=== PATIENT | female | born 1995 | race Caucasian/White ===

== ENCOUNTER 2019-06-29 05:20 | Emergency (ER) | payer OTHER ==
--- NOTE | 2019-06-29 05:45 | PDOC ---
History of Present Illness - General Chief Complaint: Pain Stated Complaint: FEVER AND ABD PAIN Time Seen by Provider: 06/29/19 05:41 - History of Present Illness Initial Comments: 06/29/19 05:45 HPI: 23 y/o F with with recent delivery of twins 3 months ago and subsequent IUD placement presenting with fever and body aches that started 12 hrs ago. Temp was 102.5 at home. She also reports congestion, rhinorrhea, retro-orbital MORALES, and cough. Cough is productive of green sputum. She also reports pleuritic left sided chest pain worse with cough and deep inspiration. Deneis syncope, emesis, dysuria, sore throat, hematuria, SOB. PMHx: as noted above ROS: as noted SHx: Denies tobacco use; no alcohol use; no rec drugs Allergies: NKDA ROS: GENERAL/CONSTITUTIONAL: +fever. No weakness. HEAD, EYES, EARS, NOSE AND THROAT: No change in vision. No ear pain or discharge. No sore throat. CARDIOVASCULAR: +chest pain; no shortness of breath RESPIRATORY: +cough; no wheezing, or hemoptysis. GASTROINTESTINAL: +nausea; no vomiting, diarrhea or constipation. GENITOURINARY: No dysuria, frequency, or change in urination. MUSCULOSKELETAL: +myalgias. SKIN: No rash NEUROLOGIC: No headache, vertigo, loss of consciousness, or change in strength/ sensation. ENDOCRINE: No increased thirst. No abnormal weight change HEMATOLOGIC/LYMPHATIC: No anemia, easy bleeding, or history of blood clots. ALLERGIC/IMMUNOLOGIC: No hives or skin allergy. PE: GENERAL: Awake, alert, and fully oriented, no acute distress HEAD: No signs of trauma, normocephalic, atraumatic EYES: EOMI, sclera anicteric, conjunctiva clear ENT: Auricles normal inspection, hearing grossly normal, nares patent, oropharynx mild erythema without exudates. Moist mucosa NECK: Normal ROM, no lymphadenopathy LUNGS: No increased work of breathing, symmetrical chest rise, clear to auscultation bilaterally, no wheezes, crackles or rhonchi HEART: Regular rate, regular rhythm, normal S1 and S2, no murmur, peripheral pulses 2+ and equal bilaterally. ABDOMEN: Soft, nondistended, generalized abd discomfort on palpation. No masses. No CVAT MUSCULOSKELETAL: Normal inspection, FROM NEUROLOGICAL: Cranial nerves II through XII grossly intact. Normal speech, normal gait, no focal sensorimotor deficits SKIN: Warm, Dry, normal turgor, no rashes or lesions noted Past History - Past Medical History Allergies/Adverse Reactions: Allergies Allergy/AdvReac Type Severity Reaction Status Date / Time No Known Allergies Allergy Verified 06/29/19 05:48 Home Medications: Ambulatory Orders Oseltamivir Phosphate [Tamiflu] 75 mg PO BID #9 capsule 06/29/19 Medical Decision Making - Medical Decision Making 06/29/19 06:43 23 y/o F with with recent delivery of twins 3 months ago and subsequent IUD placement presenting with flu like symptoms that started 12 hrs ago. T 100.2 HR 105. PE with generalized abd discomfort with palpation. DDx include preg, flu, uti -ua, flu -zofran, tylenol 06/29/19 07:09 flu + will DC with tamiflu and contact pcxns Discharge - Discharge Information Problems reviewed: Yes Clinical Impression/Diagnosis: Influenza Condition: Stable Disposition: HOME - Additional Discharge Information Prescriptions: Oseltamivir Phosphate [Tamiflu] 75 mg PO BID #9 capsule - Follow up/Referral - Patient Discharge Instructions Patient Printed Discharge Instructions: DI for Viral Syndrome Additional Instructions: Additional Instructions: Please return to the emergency department with any new or worsening symptoms or concerns. Please follow up with your primary care physician within 72 hours for re- evaluation. Please followup with you obstretician You may take tylenol 650mg every 6-8 hours for pain control Please Take tamiflu 75mg twice a day for 5 days. You received the first dose in the ER; take today's 2nd dose this evening. - Post Discharge Activity
[2019-06-29 05:48] VITALS: BMI 24.7
--- NOTE | 2019-06-29 05:51 | PDOC ---
Attending Attestation - Resident Resident Name: Lucía Nunes - ED Attending Attestation I have performed the following: I have examined & evaluated the patient, The case was reviewed & discussed with the resident, I agree w/resident's findings & plan - HPI HPI: 06/29/19 05:57 Pt comes with fever and body aches. She has tachycardia and she has a hx of asthma. SHe likely has flu. - Physicial Exam PE: 06/29/19 07:02 Agree with resident exam Pt is able to eat here SHe has a low grade temp and she is tachycardic. - Medical Decision Making 06/29/19 07:02 Home with tamiflu; precautions around her young children.
[2019-06-29] MEDS ORDERED: ACETAMINOPHEN 500 MG TABLET (FP) PO ONE ×2 (05:57→06:04)
[2019-06-29] MEDS ORDERED: ACETAMINOPHEN 325 MG TABLET (FP) ONE (06:04)
[2019-06-29 06:43] LABS: EPI CELLS 21.7 /HPF (0-5/HPF); HYALINE CASTS 32 /lpf (0-8); URINE APPEARANCE CLOUDY; URINE BACTERIA 40.4 /hpf (NEGATIVE); URINE BILIRUBIN NEGATIVE (NEGATIVE); URINE COLOR YELLOW; URINE GLUCOSE (UA) NEGATIVE (NEGATIVE); URINE KETONE TRACE (NEGATIVE); URINE LEUK ESTERASE 1+ (NEGATIVE); URINE NITRITE NEGATIVE (NEGATIVE); URINE PROTEIN TRACE (NEGATIVE); URINE UROBILINOGEN 0.2 mg/dL (0.2-1.0); URINE WBC 13 /hpf (0-5)
[2019-06-29] MEDS ORDERED: OSELTAMIVIR PHOSPHATE 75 MG CAPSULE PO ONE (07:01)
[2019-06-29 07:17] LABS: URINE RBC 4.3 /hpf (0-4)
[2019-06-29 07:41] VITALS: BP 107/60; PULSE 96; TEMP 99.6
[2019-06-29] MEDS ORDERED: OSELTAMIVIR PHOSPHATE 75 MG CAPSULE ONE (07:42)
--- NOTE | 2019-07-01 10:06 | EKG ---
Test Reason : Blood Pressure : / mmHG Vent. Rate : 091 BPM Atrial Rate : 091 BPM P-R Int : 122 ms QRS Dur : 074 ms QT Int : 346 ms P-R-T Axes : 056 058 010 degrees QTc Int : 425 ms NORMAL SINUS RHYTHM NORMAL ECG NO PREVIOUS ECGS AVAILABLE Confirmed by TYSHAWN NORWOOD MD ([id number]) on 07/01/2019 10:05:47 AM Referred By: Confirmed By:TYSHAWN NORWOOD MD
== END 2019-06-29 07:54 | disposition home or self-care (01) ==
LOC: JER 05:20
DX: J10.1 Influenza due to other identified influenza virus with other respiratory manifestations (principal); Z97.5 Presence of (intrauterine) contraceptive device
CPT/HCPCS: 81003; 84703; 87804; 93005; 93010; 99283-25

== ENCOUNTER 2019-12-04 11:44 | Emergency (ER) | payer OTHER ==
[2019-12-04 11:53] VITALS: BP 138/83; PULSE 89; TEMP 98.3; BMI 25.0
[2019-12-04] MEDS ORDERED: ACETAMINOPHEN 500 MG TABLET (FP) PO ONE (11:53)
--- NOTE | 2019-12-04 11:53 | PDOC ---
Rapid Medical Evaluation Time Seen by Provider: 12/04/19 11:47 Medical Evaluation: Allergies Allergy/AdvReac Type Severity Reaction Status Date / Time No Known Allergies Allergy Verified 12/04/19 11:47 12/04/19 11:47 CC: slipped and fell in bathtub, hitting back of head, no loc, no nausea, now with generalized throbbing, no visual changes Exam: noted hematoma with lac to occiput, vss, aox 3 Plan: tylenol and head ct. (utd on [id number]) Discharge Disposition - Diagnosis Laceration of head - Referrals - Patient Instructions - Post Discharge Activity
[2019-12-04] MEDS ORDERED: ACETAMINOPHEN 500 MG TABLET (FP) ONE (12:21)
--- NOTE | 2019-12-04 12:39 | PDOC ---
History of Present Illness - General Chief Complaint: Injury Stated Complaint: FALL/HEAD LAC Time Seen by Provider: 12/04/19 11:47 History Source: Patient Exam Limitations: No Limitations Past History - Travel History Traveled outside of the country in the last 30 days: No Close contact w/someone who was outside of country & ill: No - Medical History Allergies/Adverse Reactions: Allergies Allergy/AdvReac Type Severity Reaction Status Date / Time No Known Allergies Allergy Verified 12/04/19 11:47 Home Medications: Ambulatory Orders Oseltamivir Phosphate [Tamiflu] 75 mg PO BID #9 capsule 06/29/19 Cyclobenzaprine HCl [Flexeril -] 10 mg PO HS #10 tablet 12/04/19 Asthma: Yes COPD: No - Immunization History Immunization Up to Date: No - Psycho-Social/Smoking History Smoking History: Never smoked Have you smoked in the past 12 months: No - Substance Abuse Hx (Audit-C & DAST Scrn) How often the patient has a drink containing alcohol: Never Score: In Men: 4 or > Positive; In Women: 3 or > Positive: 0 Screen Result (Pos requires Nsg. Audit-10AR): Negative In the last yr the pt used illegal drug/Rx for NonMed reason: No Score: Yes response is considered Positive: 0 Screen Result (Positive result requires Nsg. DAST-10): Negative Review of Systems - Review of Systems Able to Perform ROS?: Yes Comments:: 12/04/19 15:21 CONSTITUTIONAL: Absent: fever, chills, diaphoresis, generalized weakness, malaise, loss of appetite HEENT: Absent: rhinorrhea, nasal congestion, throat pain, throat swelling, difficulty swallowing, mouth swelling, ear pain, eye pain, visual Changes CARDIOVASCULAR: Absent: chest pain, loss of consciousness, palpitations, irregular heart rate, peripheral edema RESPIRATORY: Absent: cough, shortness of breath, dyspnea with exertion, orthopnea, wheezing, stridor, hemoptysis GASTROINTESTINAL: Absent: abdominal pain, abdominal distension, nausea, vomiting, diarrhea, constipation, melena, hematochezia GENITOURINARY: Absent: dysuria, frequency, urgency, hesitancy, hematuria, flank pain, genital pain MUSCULOSKELETAL: Present: low back pain Absent: myalgia, arthralgia, joint swelling SKIN: Present: laceration Absent: rash, itching, pallor HEMATOLOGIC/IMMUNOLOGIC: Absent: easy bleeding, easy bruising, lymphadenopathy, frequent infections NEUROLOGIC: Absent: headache, focal weakness or paresthesias, dizziness, unsteady gait, seizure, mental status changes, bladder or bowel incontinence PSYCHIATRIC: Absent: anxiety, depression, suicidal or homicidal ideation, hallucinations. Is the patient limited Portuguese proficient: No *Physical Exam - Vital Signs Last Vital Signs Temp Pulse Resp BP Pulse Ox 98.3 F 89 16 138/83 98 12/04/19 11:47 12/04/19 11:47 12/04/19 11:47 12/04/19 11:47 12/04/19 11:47 - Physical Exam 12/04/19 15:24 GENERAL: Well developed, well nourished. Awake and alert. No acute distress. HEENT: Normocephalic, atraumatic. PERRLA, EOMI. No conjunctival pallor. Sclera are non- icteric. Moist mucous membranes. Oropharynx is clear. NECK: Supple. Full ROM. No JVD. Carotid pulses 2+ and symmetric, without bruits. No thyromegaly. No lymphadenopathy. CARDIOVASCULAR: Regular rate and rhythm. No murmurs, rubs, or gallops. Distal pulses are 2+ and symmetric. PULMONARY: No evidence of respiratory distress. Lungs clear to auscultation bilaterally. No wheezing, rales or rhonchi. ABDOMINAL: Soft. Non-tender. Non-distended. No rebound or guarding. No organomegaly. Normoactive bowel sounds. MUSCULOSKELETAL TTP of the R lower paraspinous muscles L3-L5 with palpable spasm. No midline tenderness. (-) straight leg raise test b/l. Normal range of motion at all joints. No bony deformities or tenderness. No CVA tenderness. EXTREMITIES: No cyanosis. No clubbing. No edema. No calf tenderness. SKIN: 1cm laceration to the L occiput. Warm and dry. Normal capillary refill. No rashes. No jaundice. NEUROLOGICAL: Alert, awake, appropriate. Cranial nerves 2-12 intact. No deficits to light touch and temperature in face, upper extremities and lower extremities. No motor deficits in the in face, upper extremities and lower extremities. Normoreflexic in the upper and lower extremities. Normal speech. Toes are down-going bilaterally. Gait is normal without ataxia. PSYCHIATRIC: Cooperative. Good eye contact. Appropriate mood and affect. Procedures - Laceration/Wound Repair Left Occipital Wound Length: to 2.5 cm Wound Explored: clean, no foreign body present Wound's Depth, Shape: superficial Irrigated w/ Saline: Yes Betadine Prep: Yes Anesthesia: LET Wound Repaired With: Isra Number of Sutures: 2 ED Treatment Course - Medications Given in the ED: ED Medications Discontinued Medications Generic Name Dose Route Start Last Admin Trade Name Petr PRN Reason Stop Dose Admin Acetaminophen 975 mg 12/04/19 11:53 12/04/19 12:21 Tylenol - PO 12/04/19 11:54 975 mg ONCE ONE Administration Medical Decision Making - Medical Decision Making 12/04/19 15:32 The patient is a 24-year-old female no past medical history who presents to the ER for injuries after fall. She states she was cleaning her bathtub when she slipped and fell. She states she hit the back of her head on the tub and she sustained a cut. She also notes she has right lower back pain. She denies losing consciousness, lightheadedness and vomiting. Denies saddle anesthesia and bladder bowel incontinence. A/P: Injuries from a fall On exam there is a 1 cm laceration to the left occiput, tenderness to palpation of the right lower paraspinous muscles L3-L5 without vertebral tenderness or positive straight leg raise test. Patient is neurologically intact with no focal deficits. Wound was irrigated with high flow normal saline and 2 isra were placed. See procedure note. CT head negative for acute pathology. Lumbar spine x-ray shows no acute pathology. Patient likely sustained a right- sided back spasm as a result of the fall. Lidocaine patch and Toradol given with relief of symptoms. Discharge home with orthopedic follow-up and primary care follow-up I discussed the physical exam findings, ancillary test results and final diagnoses with the patient. I answered all of the patient's questions. The patient was satisfied with the care received and felt comfortable with the discharge plan and treatment plan. The Patient agrees to follow up with the primary care physician/specialist within 24-72 hours. Return precautions were given. Discharge - Discharge Information Problems reviewed: Yes Clinical Impression/Diagnosis: Laceration of head Qualifiers: Encounter type: initial encounter Location of open wound of head: scalp Foreign body presence: without foreign body Qualified Code(s): S01.01XA - Laceration without foreign body of scalp, initial encounter Fall Qualifiers: Encounter type: initial encounter Qualified Code(s): W19.XXXA - Unspecified fall, initial encounter Back pain Qualifiers: Back pain location: low back pain Chronicity: acute Back pain laterality: right Sciatica presence: without sciatica Qualified Code(s): M54.5 - Low back pain Condition: Stable Disposition: HOME - Admission No - Additional Discharge Information Prescriptions: Cyclobenzaprine HCl [Flexeril -] 10 mg PO HS #10 tablet - Follow up/Referral Referrals: ON STAFF,NOT [Primary Care Provider] - - Patient Discharge Instructions Patient Printed Discharge Instructions: DI for Laceration Repair -- [place] Additional Instructions: Your evaluated for injuries after your fall today. You had your cut repaired with isra. Please keep the area clean and dry for 24 hours. Avoid tugging at the area when you wash your hair. Please return in 5 to 7 days to have the isra removed. You were also evaluated for your back pain. Your x-ray was normal. If you are still having pain when you sit. You may use a doughnut pillow. Please take the Flexeril at night before bed to help with the muscle spasm in your back. Do not drink alcohol or drive after taking this medication as it may make you drowsy. You may take Tylenol 650 mg every 6 hours as needed for pain Please follow-up with your primary care doctor this week for further evaluation of your symptoms. Return to the ER for headache, dizzy, vomiting or if you have any changes in your symptoms. - Post Discharge Activity
[2019-12-04] MEDS ORDERED: LIDOCAINE 5% TOPICAL PATCH TP ONE (12:48)
[2019-12-04] MEDS ORDERED: LIDOCAINE 2.5%/PRILOCAINE 2.5% (5 Gram/TUBE) TP ONE ×2 (12:48)
[2019-12-04] MEDS ORDERED: LIDOCAINE 5% TOPICAL PATCH ONE (12:50)
[2019-12-04] MEDS ORDERED: KETOROLAC TROMETHAMINE 60 MG/2 ML VIAL IM ONE (14:20)
[2019-12-04] MEDS ORDERED: KETOROLAC TROMETHAMINE 30 MG/1 ML VIAL ONE (14:21)
== END 2019-12-04 14:29 | disposition home or self-care (01) ==
LOC: JERFT 11:44
PROC: 3E023GC Introduction of Other Therapeutic Substance into Muscle, Percutaneous Approach (ICD-10-PCS; principal; 2019-12-04)
DX: S01.01XA Laceration without foreign body of scalp, initial encounter (principal); M54.5 Low back pain; W19.XXXA Unspecified fall, initial encounter
CPT/HCPCS: 70450-TC; 72100-TC-FY; 84703; 99284-25

== ENCOUNTER 2020-01-20 20:30 | Emergency (ER) | payer OTHER ==
[2020-01-20 20:36] VITALS: BP 105/69; PULSE 102; TEMP 98.3; BMI 25.0
--- NOTE | 2020-01-20 20:38 | PDOC ---
Rapid Medical Evaluation Time Seen by Provider: 01/20/20 20:34 Medical Evaluation: Allergies Allergy/AdvReac Type Severity Reaction Status Date / Time No Known Allergies Allergy Verified 12/04/19 11:47 01/20/20 20:34 Pt presents for two days of runny nose, cough, sore throat and chills. States she feels like she coughs when the drip goes down her throat. Pt also still has a staple in her head from her visit on 11/30/19 Exam: TTP of the maxillary sinuses. Throat non-erythematous. One staple present in the L parietal lobe Orders: nothing Pt to proceed to the ER for further evaluation Discharge Disposition - Diagnosis Nasal congestion, Removal of staple - Referrals - Patient Instructions - Post Discharge Activity
--- NOTE | 2020-01-20 20:50 | PDOC ---
History of Present Illness - General Chief Complaint: Cold Symptoms Stated Complaint: COUGH/SORE THROAT Time Seen by Provider: 01/20/20 20:34 - History of Present Illness Initial Comments: 01/20/20 20:48 24-year-old female assures me there is no chance of . Presents for evaluation of scratchy throat watery eyes and nasal congestion x2 days without systemic symptoms 01/20/20 20:48 She also presents for staple removal from a staple that was placed over a month ago Past History - Medical History Allergies/Adverse Reactions: Allergies Allergy/AdvReac Type Severity Reaction Status Date / Time No Known Allergies Allergy Verified 12/04/19 11:47 Home Medications: Ambulatory Orders Oseltamivir Phosphate [Tamiflu] 75 mg PO BID #9 capsule 06/29/19 Cyclobenzaprine HCl [Flexeril -] 10 mg PO HS #10 tablet 12/04/19 Budesonide [Rhinocort Allergy] 1 spray NS ONCE #1 spray.pump 01/20/20 Cetirizine HCl/Pseudoephedrine [Zyrtec-D Tablet] 1 each PO DAILY #30 tab.er.12h 01/20/20 Asthma: Yes COPD: No - Reproductive History Is Patient Now?: No - Immunization History Immunization Up to Date: No - Psycho-Social/Smoking History Smoking History: Never smoked Have you smoked in the past 12 months: No - Substance Abuse Hx (Audit-C & DAST Scrn) How often the patient has a drink containing alcohol: Never Score: In Men: 4 or > Positive; In Women: 3 or > Positive: 0 Screen Result (Pos requires Nsg. Audit-10AR): Negative In the last yr the pt used illegal drug/Rx for NonMed reason: No Score: Yes response is considered Positive: 0 Screen Result (Positive result requires Nsg. DAST-10): Negative Review of Systems - Review of Systems Constitutional: No: Fever HEENTM: Yes: Tearing, Nose Congestion *Physical Exam - Vital Signs Last Vital Signs Temp Pulse Resp BP Pulse Ox 98.3 F 102 H 19 105/69 99 01/20/20 20:33 01/20/20 20:33 01/20/20 20:33 01/20/20 20:33 01/20/20 20:33 - Physical Exam 01/20/20 20:48 GENERAL: The patient is awake, alert, and fully oriented, in no acute distress. HEAD: Normal with no signs of trauma. The wound on the occipital scalp is well- healed isra were removed with a staple removal without complication EYES: sclera anicteric, conjunctiva clear. ENT: Ears normal tympanic membranes normal oropharynx clear uvula midline NECK: Normal range of motion LUNGS: Breath sounds equal, clear to auscultation bilaterally. No wheezes, and no crackles. HEART: S1 and S2 without murmur, rub or gallop. ABDOMEN: Soft, nontender, normoactive bowel sounds. No guarding, no rebound. No masses. EXTREMITIES: Normal range of motion, no edema. No clubbing or cyanosis. No cords, erythema, or tenderness. NEUROLOGICAL: Cranial nerves II through XII grossly intact. PSYCH: Normal mood, normal affect. SKIN: Warm, Dry, normal turgor, no rashes or lesions noted. Medical Decision Making - Medical Decision Making 01/20/20 20:48 Staple was removed with a staple remover without complication. Discussed sinusitis versus seasonal allergies we will treat for seasonal as allergies at this point follow-up with primary care physician I have reviewed the pathophysiology with the patient. They are in agreement with the treatment plan all questions were answered to their satisfaction. Understanding for follow-up without fail was also conveyed to the patient. Again they are in agreement. Discharge - Discharge Information Problems reviewed: Yes Clinical Impression/Diagnosis: Nasal congestion, Removal of staple, Seasonal allergies Condition: Stable Disposition: HOME - Admission No - Additional Discharge Information Prescriptions: Budesonide [Rhinocort Allergy] 1 spray NS ONCE #1 spray.pump Cetirizine HCl/Pseudoephedrine [Zyrtec-D Tablet] 1 each PO DAILY #30 tab.er.12h - Follow up/Referral Referrals: Brandon Fragoso MD [Staff Physician] - - Patient Discharge Instructions Additional Instructions: Please use the allergy medication as directed and return to the emergency room should symptoms worsen without fail follow-up with your primary care physician in 1 to 2 days for further evaluation and treatment options. - Post Discharge Activity
== END 2020-01-20 21:01 | disposition home or self-care (01) ==
LOC: JERFT 20:30
DX: R09.81 Nasal congestion (principal); J30.2 Other seasonal allergic rhinitis; Z48.02 Encounter for removal of sutures
CPT/HCPCS: 99281-25